=== PATIENT | female | born 1995 | race Two or more races ===

== ENCOUNTER 2019-02-03 13:04 | Inpatient (IN) | payer BC ==
[~2019-02-03] VITALS: Ht 162.6 cm; Wt 110.4 kg
[2019-02-03] MEDS ORDERED: ETHI1TAB PO (13:37)
[2019-02-03] MEDS ORDERED: IMIP50 PO (13:37)
[2019-02-03] MEDS ORDERED: LAMO100 PO (13:37)
[2019-02-03] MEDS ORDERED: LURA40 PO (13:37)
[2019-02-03 13:49] LABS: BASOPHILS % (AUTO) 0.4 % (0.0-2.0); EOSINOPHILS % (AUTO) 0 % (1.0-6.0); HEMATOCRIT 41.7 % (36-46); HEMOGLOBIN 13.6 g/dL (12.0-16.0); LYMPHOCYTES # (AUTO) 3.2 K/uL (1.0-4.8); LYMPHOCYTES % (AUTO) 36.3 % (22.0-44.0); MEAN CORPUSCULAR HEMOGLOBIN 28.6 pg (26.0-34.0); MEAN CORPUSCULAR HGB CONC 32.6 G/dL (31.0-37.0); MEAN CORPUSCULAR VOLUME 88 fL (80-100); MONOCYTES # (AUTO) 0.7 K/uL (0.1-1.0); MONOCYTES % (AUTO) 7.4 % (2.0-9.0); NEUTROPHILS # (AUTO) 4.9 K/uL (1.8-7.7); NEUTROPHILS % (AUTO) 55.9 % (40.0-70.0); PLATELET COUNT (AUTO) 323 K/uL (150-450); RED BLOOD CELL COUNT(AUTO) 4.76 MIL/uL (4.00-5.20); RED CELL DISTRIBUTION WIDTH 13.3 % (11.5-14.5)
[2019-02-03 14:00] LABS: ANION GAP 4 mmol/L (8-16); CALCIUM, TOTAL 8.8 mg/dL (8.8-10.5); CARBON DIOXIDE 31 mmol/L (22-29); CHLORIDE 101 mmol/L (98-107); CREATININE 0.93 mg/dL (0.60-1.30); GLOMERULAR FILTR. RATE CALC > 60 mL/min (>60); GLUCOSE,RANDOM 90 mg/dL (70-110); POTASSIUM 4.4 mmol/L (3.5-5.1); SODIUM SERUM 136 mmol/L (136-145); UREA NITROGEN, BLOOD 11 mg/dL (7-18)
[2019-02-03 14:13] LABS: ALANINE AMINOTRANSFERASE 23 U/L (12-78); ALBUMIN 3.1 g/dL (3.4-5.0); ALKALINE PHOSPHATASE 104 U/L (46-116); ASPARTATE AMINOTRANSFERASE 20 U/L (15-37); BILIRUBIN,TOTAL 0.2 mg/dL (0.1-1.0); HCG,QUANTITATIVE < 1 mIU/mL (0-6); TOTAL PROTEIN, SERUM 7.2 g/dL (6.4-8.2)
[2019-02-03 14:55] LABS: AMPHET/METH SCREEN,URINE NEGATIVE (NEGATIVE); BARBITURATE SCREEN, URINE NEGATIVE (NEGATIVE); BENZODIAZEPINES SCREEN,URINE NEGATIVE (NEGATIVE); CANNABINOID SCREEN,URINE NEGATIVE (NEGATIVE); COCAINE SCREEN,URINE NEGATIVE (NEGATIVE); METHADONE SCREEN, URINE NEGATIVE (NEGATIVE); OPIATE SCREEN,URINE NEGATIVE (NEGATIVE)
[2019-02-03 14:57] LABS: PHENCYCLIDINE SCREEN,URINE NEGATIVE (NEGATIVE)
[2019-02-03] MEDS ORDERED: ZOLPIDEM TARTRATE 10 MG TABLET PO PRN (15:30)
[2019-02-03] MEDS ORDERED: HALOPERIDOL 5 MG TABLET PO PRN (15:30)
[2019-02-03 20:28] VITALS: BP 110/58
[2019-02-03] MEDS ORDERED: ALBUTEROL SULFATE HFA 90 MCG/PUFF 8 GM INHALER IH PRN (20:30)
[2019-02-03] MEDS ORDERED: NICOTINE 14 MG/24 HOUR PATCH TD PRN (20:30)
[2019-02-03] MEDS ORDERED: ONDANSETRON HCL 4 MG TABLET PO PRN (20:30)
[2019-02-03] MEDS ORDERED: MAGNESIUM HYDROXIDE SUSPENSION 30 ML UDCUP PO PRN (20:30)
[2019-02-03] MEDS ORDERED: DOCUSATE SODIUM 100 MG CAPSULE PO PRN (20:30)
[2019-02-03] MEDS ORDERED: IBUPROFEN 400 MG TABLET PO PRN (20:30)
[2019-02-03] MEDS ORDERED: CloNIDine HCL 0.1 MG TABLET PO PRN (20:30)
[2019-02-03] MEDS ORDERED: ACETAMINOPHEN 325 MG TABLET PO PRN (20:30)
[2019-02-03] MEDS ORDERED: GuaiFENesin/D-METHORPHAN [SUGAR-FREE] 200-20MG/10 ML SYRUP UDCUP PO PRN (20:30)
[2019-02-03] MEDS ORDERED: LOPERAMIDE HCL 2 MG CAPSULE PO PRN (20:30)
[2019-02-03] MEDS ORDERED: PETROLATUM,WHITE 28 GM JELLY TP PRN (20:30)
[2019-02-03] MEDS ORDERED: MAG HYDROX/AL HYDROX/SIMETH ES 30 ML SUSPENSION UDCUP PO PRN (20:30)
[2019-02-03] MEDS: LURASIDONE HCL 40 MG TABLET PO SCH (22:43)
[2019-02-03] MEDS: LamoTRIgine 100 MG TABLET PO SCH (22:43)
[2019-02-04 08:13] LABS: CHOL/HDL RATIO 1.8 (3.9-5.7)
[2019-02-04] MEDS: LamoTRIgine 100 MG TABLET PO SCH ×2 (09:04→20:29)
[2019-02-04] MEDS: LURASIDONE HCL 40 MG TABLET PO SCH ×2 (09:04→21:09)
[2019-02-04 10:45] VITALS: BP 103/67
[2019-02-04] MEDS: LORazepam 2 MG TABLET PO PRN (17:27)
[2019-02-04 20:53] VITALS: BP 113/59
[2019-02-05 08:00] VITALS: BP 117/85
[2019-02-05] MEDS: LURASIDONE HCL 40 MG TABLET PO SCH ×2 (09:37→20:14)
[2019-02-05] MEDS: LamoTRIgine 100 MG TABLET PO SCH ×2 (09:38→20:14)
[2019-02-05 17:08] VITALS: BP 113/68
[2019-02-05] MEDS: LORazepam 2 MG TABLET PO PRN (20:14)
[2019-02-06] MEDS: LORazepam 2 MG TABLET PO PRN (08:37)
[2019-02-06] MEDS: LURASIDONE HCL 40 MG TABLET PO SCH (08:37)
[2019-02-06] MEDS: LamoTRIgine 100 MG TABLET PO SCH (08:37)
== END 2019-02-06 14:00 | disposition home or self-care (01) | DRG 885 ==
LOC: EMS 13:05 → 3EI 17:56
PROVIDERS: ADMIT Psychiatry & Neurology Psychiatry; ATTEND Psychiatry & Neurology Psychiatry
DX: F33.2 Major depressive disorder, recurrent severe without psychotic features (principal); R45.851 Suicidal ideations; F43.10 Post-traumatic stress disorder, unspecified; F41.9 Anxiety disorder, unspecified; I95.9 Hypotension, unspecified; R00.0 Tachycardia, unspecified; Z91.5 Personal history of self-harm
CPT/HCPCS: G0480